=== PATIENT | male | born 1945 | race African-American/Black ===

== ENCOUNTER 2023-12-11 13:36 | Inpatient (IN) | payer MEDICARE ==
[~2023-12-11] VITALS: Ht 177.8 cm; Wt 99.6 kg
[2023-12-11] MEDS ORDERED: ATOR20TA PO (13:54)
[2023-12-11] MEDS ORDERED: LOSA-381 PO (13:54)
[2023-12-11] MEDS ORDERED: LANS-78 PO (13:54)
[2023-12-11] MEDS ORDERED: METO25XL PO (13:54)
[2023-12-11] MEDS ORDERED: FURO20 PO (13:54)
[2023-12-11] MEDS ORDERED: DAPA10TA7 PO (13:54)
[2023-12-11] MEDS ORDERED: OXYC5 PO (13:54)
[2023-12-11] MEDS ORDERED: METF-81 PO (13:54)
[2023-12-11] MEDS ORDERED: APIX5TAB PO (13:54)
[2023-12-11] MEDS: SODIUM CHLORIDE 0.9% 1,000 ML IV ONE (14:05)
[2023-12-11 14:12] LABS: EOSINOPHILS % (AUTO) 1.1 % (1.0-6.0); HEMATOCRIT 44.4 % (41-53); HEMOGLOBIN 14.7 g/dL (13.5-17.5); LYMPHOCYTES # (AUTO) 1.6 K/uL (1.0-4.8); LYMPHOCYTES % (AUTO) 41.3 % (22.0-44.0); MEAN CORPUSCULAR HEMOGLOBIN 29.5 pg (26.0-34.0); MEAN CORPUSCULAR VOLUME 89 fL (80-100); MONOCYTES # (AUTO) 0.4 K/uL (0.1-1.0); MONOCYTES % (AUTO) 11.1 % (2.0-9.0); NEUTROPHILS # (AUTO) 1.7 K/uL (1.8-7.7); NEUTROPHILS % (AUTO) 45.5 % (40.0-70.0); PLATELET COUNT (AUTO) 100 K/uL (150-450); RED BLOOD CELL COUNT(AUTO) 4.98 MIL/uL (4.50-5.90); RED CELL DISTRIBUTION WIDTH 17.3 % (11.5-14.5); WHITE BLOOD COUNT (AUTO) 3.8 K/uL (4.5-11.0)
[2023-12-11 14:22] LABS: ANION GAP 7 mmol/L (8-16); CALCIUM, TOTAL 9.7 mg/dL (8.8-10.5); CARBON DIOXIDE 29 mmol/L (22-29); CHLORIDE 101 mmol/L (98-107); CREATININE 1.75 mg/dL (0.60-1.30); GLOMERULAR FILTR. RATE CALC 38 mL/min (>60); GLUCOSE,RANDOM 159 mg/dL (70-110); POTASSIUM 4.4 mmol/L (3.5-5.1); SODIUM SERUM 137 mmol/L (136-145); UREA NITROGEN, BLOOD 31 mg/dL (7-18)
[2023-12-11 14:26] LABS: INR 1.1 (0.9-1.1); PROTHROMBIN TIME 11.4 SEC (9.4-11.6)
[2023-12-11 14:28] LABS: ALANINE AMINOTRANSFERASE 60 U/L (12-78); ALBUMIN 3.7 g/dL (3.4-5.0); ALKALINE PHOSPHATASE 130 U/L (46-116); ASPARTATE AMINOTRANSFERASE 30 U/L (15-37); BILIRUBIN,TOTAL 0.7 mg/dL (0.1-1.0); CREATINE KINASE, TOTAL ONLY 40 U/L (39-308); TOTAL PROTEIN, SERUM 7.9 g/dL (6.4-8.2)
[2023-12-11 14:29] LABS: B-TYPE NATRIURETIC PEPTIDE 271 pg/mL (0-100)
[2023-12-11 14:30] LABS: LACTIC ACID 1.6 mmol/L (0.4-2.0)
[2023-12-11 14:58] LABS: TROPONIN I-HIGH SENSITIVITY 791 ng/L (<76)
[2023-12-11 15:33] LABS: COVID AG,FIA SOURCE NASAL SWAB
[2023-12-11] MEDS ORDERED: HEPARIN SODIUM,PORCINE 5,000 UNITS/ML VIAL IVP PRN ×2 (15:45)
[2023-12-11] MEDS ORDERED: HEPARIN SODIUM,PORCINE 5,000 UNITS/ML VIAL IVP ONE (15:45)
[2023-12-11] MEDS: HEPARIN SODIUM,PORCINE 5,000 UNITS/ML VIAL IVP ONE (16:00)
[2023-12-11 16:02] LABS: SARS-COV2 (COVID) ANTIGEN,FIA Negative (Negative)
[2023-12-11] MEDS: HEPARIN SODIUM 25000 UNITS/D5W 250 ML IV PRN (16:02)
[2023-12-11 16:19] LABS: APPEARANCE,URINE CLEAR (CLEAR); BILIRUBIN,URINE NEGATIVE (NEGATIVE); COLOR,URINE COLORLESS (YELLOW); GLUCOSE, URINE (UA) >=1000 mg/dL (NEGATIVE); KETONES,URINE NEGATIVE (NEGATIVE); LEUKOCYTE ESTERASE ,URINE NEGATIVE (NEGATIVE); NITRATE,URINE NEGATIVE (NEGATIVE); OCCULT BLOOD,URINE NEGATIVE (NEGATIVE); PROTEIN,URINE NEGATIVE (NEGATIVE); SPECIFIC GRAVITIY, URINE 1.006 (1.003-1.030); UROBILINOGEN,URINE <=1.0 mg/dL (<=1.0)
[2023-12-11 16:31] LABS: BACTERIA,URINE None Seen /HPF (None Seen); RBC,URINE None Seen /HPF (0-2); WBC,URINE 0-2 /HPF (0-5)
[2023-12-11 17:41] LABS: TROPONIN I-HIGH SENSITIVITY 820 ng/L (<76)
[2023-12-11] MEDS ORDERED: DEXTROSE 50%-WATER 25 GM/50 ML SYRINGE IVP PRN (17:45)
[2023-12-11] MEDS ORDERED: MAGNESIUM HYDROXIDE SUSPENSION 30 ML UDCUP PO PRN (17:45)
[2023-12-11] MEDS ORDERED: ONDANSETRON HCL 4 MG/2 ML VIAL IVP PRN (17:45)
[2023-12-11] MEDS ORDERED: ZOLPIDEM TARTRATE 5 MG TABLET PO PRN (17:45)
[2023-12-11] MEDS ORDERED: ACETAMINOPHEN 325 MG TABLET PO PRN (17:45)
[2023-12-11] MEDS ORDERED: BISACODYL 10 MG RECTAL RECTAL SUPPOSITORY PR PRN (17:45)
[2023-12-11] MEDS: DOCUSATE SODIUM 100 MG CAPSULE PO SCH (21:00)
[2023-12-11 21:01] LABS: GLUCOMETER DEV NAME(LOC) ERT.5; GLUCOSE,POINT OF CARE 100 MG/DL (70-110)
[2023-12-11 21:19] VITALS: BP 105/71; PULSE 62; RESP 18; TEMP 97.6
[2023-12-11] MEDS: ATORVASTATIN CALCIUM 20 MG TABLET PO SCH (22:50)
[2023-12-12 01:24] VITALS: BP 93/65; PULSE 62; RESP 18; TEMP 98.5
[2023-12-12 05:33] VITALS: BP 76/50; PULSE 105; RESP 20; TEMP 97.5
[2023-12-12 06:16] VITALS: BP 95/60; RESP 18
[2023-12-12 07:06] LABS: BASOPHILS % (AUTO) 0.5 % (0.0-2.0); EOSINOPHILS % (AUTO) 1.5 % (1.0-6.0); HEMATOCRIT 41.9 % (41-53); HEMOGLOBIN 13.9 g/dL (13.5-17.5); LYMPHOCYTES # (AUTO) 1.7 K/uL (1.0-4.8); LYMPHOCYTES % (AUTO) 49.1 % (22.0-44.0); MEAN CORPUSCULAR HEMOGLOBIN 29.4 pg (26.0-34.0); MEAN CORPUSCULAR HGB CONC 33.1 G/dL (31.0-37.0); MEAN CORPUSCULAR VOLUME 89 fL (80-100); MONOCYTES # (AUTO) 0.4 K/uL (0.1-1.0); MONOCYTES % (AUTO) 10.5 % (2.0-9.0); NEUTROPHILS # (AUTO) 1.3 K/uL (1.8-7.7); NEUTROPHILS % (AUTO) 38.4 % (40.0-70.0); PLATELET COUNT (AUTO) 96 K/uL (150-450); RED BLOOD CELL COUNT(AUTO) 4.72 MIL/uL (4.50-5.90); RED CELL DISTRIBUTION WIDTH 16.8 % (11.5-14.5); WHITE BLOOD COUNT (AUTO) 3.5 K/uL (4.5-11.0)
[2023-12-12 07:09] LABS: CALCIUM, TOTAL 9.1 mg/dL (8.8-10.5); CREATININE 1.57 mg/dL (0.60-1.30); POTASSIUM 3.9 mmol/L (3.5-5.1)
[2023-12-12 07:31] LABS: TROPONIN I-HIGH SENSITIVITY 617 ng/L (<76)
[2023-12-12 07:55] LABS: CHOL/HDL RATIO 1.5 (4.2-7.3); THYROID STIMULATING HORMONE 1.6 uIU/mL (0.36-3.74)
[2023-12-12 08:18] VITALS: BP 117/71; PULSE 74; RESP 20; TEMP 97.4; O2SAT 91
[2023-12-12] MEDS ORDERED: HEPARIN SODIUM,PORCINE 5,000 UNITS/ML VIAL IVP PRN (08:30)
[2023-12-12] MEDS: METOPROLOL TARTRATE 25 MG TABLET PO SCH (09:20)
[2023-12-12] MEDS: ASPIRIN 81 MG DR TABLET PO SCH (09:20)
[2023-12-12] MEDS: PANTOPRAZOLE SODIUM 40 MG DR TABLET PO SCH (09:20)
[2023-12-12] MEDS: HEPARIN SODIUM,PORCINE 5,000 UNITS/ML VIAL IVP ONE (09:21)
[2023-12-12] MEDS: INSULIN LISPRO 100 UNITS/ML SQ PRN (12:20)
[2023-12-12] MEDS: HEPARIN SODIUM,PORCINE 5,000 UNITS/ML VIAL IVP PRN (16:02)
[2023-12-12] MEDS: HEPARIN SODIUM 25000 UNITS/D5W 250 ML IV PRN (16:16)
[2023-12-12 19:39] VITALS: BP 103/63; PULSE 61; RESP 20; TEMP 98
[2023-12-13 00:51] VITALS: BP 92/59; PULSE 70; RESP 18; TEMP 97.9
[2023-12-13 05:39] VITALS: BP 111/58; PULSE 64; RESP 18; TEMP 97.6
[2023-12-13 06:54] LABS: BASOPHILS % (AUTO) 0.5 % (0.0-2.0); EOSINOPHILS % (AUTO) 1.7 % (1.0-6.0); HEMATOCRIT 40.9 % (41-53); HEMOGLOBIN 13.7 g/dL (13.5-17.5); LYMPHOCYTES # (AUTO) 1.8 K/uL (1.0-4.8); LYMPHOCYTES % (AUTO) 49.9 % (22.0-44.0); MEAN CORPUSCULAR HEMOGLOBIN 29.7 pg (26.0-34.0); MEAN CORPUSCULAR HGB CONC 33.6 G/dL (31.0-37.0); MEAN CORPUSCULAR VOLUME 89 fL (80-100); MONOCYTES # (AUTO) 0.6 K/uL (0.1-1.0); MONOCYTES % (AUTO) 15.4 % (2.0-9.0); NEUTROPHILS # (AUTO) 1.2 K/uL (1.8-7.7); NEUTROPHILS % (AUTO) 32.5 % (40.0-70.0); PLATELET COUNT (AUTO) 85 K/uL (150-450); RED BLOOD CELL COUNT(AUTO) 4.62 MIL/uL (4.50-5.90); RED CELL DISTRIBUTION WIDTH 16.6 % (11.5-14.5); WHITE BLOOD COUNT (AUTO) 3.7 K/uL (4.5-11.0)
[2023-12-13 07:00] LABS: CALCIUM, TOTAL 9.1 mg/dL (8.8-10.5); CREATININE 1.48 mg/dL (0.60-1.30)
[2023-12-13] MEDS: HEPARIN SODIUM,PORCINE 5,000 UNITS/ML VIAL IVP PRN (09:12)
[2023-12-13] MEDS ORDERED: HEPARIN SODIUM,PORCINE 5,000 UNITS/ML VIAL IVP PRN (09:15)
[2023-12-13 09:21] VITALS: BP 104/49; PULSE 68; RESP 18; TEMP 98
[2023-12-13] MEDS ORDERED: PENTETATE DTPA TC99M/MCL ISOTOPE 1 EA INJ INJ ONE (11:10)
[2023-12-13 11:30] VITALS: BP 104/65; PULSE 119; RESP 19; TEMP 98.1
[2023-12-13] MEDS ORDERED: MAA ALBUMIN AGGREGATED TC99M/UD<10MCL ISOTOPE 1 EA INJ INJ ONE (11:30)
[2023-12-13 17:21] VITALS: BP 109/77; PULSE 74; RESP 19; TEMP 97.7
[2023-12-13 20:27] VITALS: BP 99/66; PULSE 75; RESP 18; TEMP 97.9
[2023-12-13] MEDS: HEPARIN SODIUM 25000 UNITS/D5W 250 ML IV PRN (23:33)
[2023-12-14 00:16] VITALS: BP 97/50; PULSE 86; RESP 19; TEMP 97.6
[2023-12-14 04:02] VITALS: BP 126/60; PULSE 69; RESP 18; TEMP 97.5
[2023-12-14 07:01] LABS: BASOPHILS % (AUTO) 0.8 % (0.0-2.0); EOSINOPHILS % (AUTO) 1.7 % (1.0-6.0); HEMOGLOBIN 14.1 g/dL (13.5-17.5); LYMPHOCYTES # (AUTO) 1.6 K/uL (1.0-4.8); LYMPHOCYTES % (AUTO) 42.9 % (22.0-44.0); MEAN CORPUSCULAR HEMOGLOBIN 29.7 pg (26.0-34.0); MEAN CORPUSCULAR HGB CONC 33.5 G/dL (31.0-37.0); MEAN CORPUSCULAR VOLUME 89 fL (80-100); MONOCYTES # (AUTO) 0.5 K/uL (0.1-1.0); MONOCYTES % (AUTO) 12.9 % (2.0-9.0); NEUTROPHILS # (AUTO) 1.6 K/uL (1.8-7.7); NEUTROPHILS % (AUTO) 41.7 % (40.0-70.0); PLATELET COUNT (AUTO) 80 K/uL (150-450); RED BLOOD CELL COUNT(AUTO) 4.74 MIL/uL (4.50-5.90); RED CELL DISTRIBUTION WIDTH 16.9 % (11.5-14.5); WHITE BLOOD COUNT (AUTO) 3.8 K/uL (4.5-11.0)
[2023-12-14 07:08] LABS: CREATININE 1.67 mg/dL (0.60-1.30); POTASSIUM 4.3 mmol/L (3.5-5.1)
[2023-12-14 07:14] LABS: CALCIUM, TOTAL 9.1 mg/dL (8.8-10.5)
[2023-12-14 08:32] VITALS: BP 102/59; PULSE 70; RESP 18; TEMP 97.6
[2023-12-14] MEDS: APIXABAN 5 MG TABLET PO SCH (08:40)
[2023-12-14] MEDS: LOSARTAN POTASSIUM 25 MG TABLET PO SCH (09:00)
[2023-12-14] MEDS: METOPROLOL SUCCINATE 25 MG ER TABLET PO SCH (09:00)
[2023-12-14 11:07] VITALS: BP 98/64; PULSE 76; RESP 18; TEMP 98.1
[2023-12-14 16:16] VITALS: BP 120/77; PULSE 73; RESP 18; TEMP 97.4
[2023-12-14 17:56] LABS: GLUCOMETER DEV NAME(LOC) 5N.2C; GLUCOSE,POINT OF CARE 119 MG/DL (70-110)
[2023-12-14 20:00] VITALS: BP 93/55; PULSE 73; RESP 18; TEMP 98.2
[2023-12-15] VITALS: BP 99/61; PULSE 63; RESP 18; TEMP 97.6
[2023-12-15 00:12] LABS: GLUCOMETER DEV NAME(LOC) 5S.2C; GLUCOSE,POINT OF CARE 162 MG/DL (70-110)
[2023-12-15 00:12] LABS: GLUCOMETER DEV NAME(LOC) 5S.2C; GLUCOSE,POINT OF CARE 146 MG/DL (70-110)
[2023-12-15 00:12] LABS: GLUCOMETER DEV NAME(LOC) 5S.2C; GLUCOSE,POINT OF CARE 154 MG/DL (70-110)
[2023-12-15 00:12] LABS: GLUCOMETER DEV NAME(LOC) 5S.2C; GLUCOSE,POINT OF CARE 149 MG/DL (70-110)
[2023-12-15 00:13] LABS: GLUCOMETER DEV NAME(LOC) 5S.2C; GLUCOSE,POINT OF CARE 162 MG/DL (70-110)
[2023-12-15 04:00] VITALS: BP 91/62; PULSE 66; RESP 18; TEMP 97.5
[2023-12-15 07:09] VITALS: BP 112/72; PULSE 66; RESP 18; TEMP 97.6
[2023-12-15 07:14] LABS: CALCIUM, TOTAL 9.2 mg/dL (8.8-10.5); CREATININE 1.58 mg/dL (0.60-1.30); POTASSIUM 4.4 mmol/L (3.5-5.1)
[2023-12-15] MEDS: SPIRONOLACTONE 25 MG TABLET PO SCH (08:16)
[2023-12-15] MEDS ORDERED: METO25XL PO (09:54)
[2023-12-15] MEDS ORDERED: SPIR-37 PO (09:54)
[2023-12-15] MEDS ORDERED: LOSA-417 PO (09:54)
[2023-12-15] MEDS ORDERED: ASPI-1444 PO (09:54)
[2023-12-15 11:30] VITALS: BP 104/70; PULSE 68; RESP 18; TEMP 98.2
[2023-12-16 11:51] LABS: GLUCOMETER DEV NAME(LOC) 5N.1C; GLUCOSE,POINT OF CARE 123 MG/DL (70-110)
[2023-12-16 11:56] LABS: GLUCOMETER DEV NAME(LOC) 5N.1C; GLUCOSE,POINT OF CARE 185 MG/DL (70-110)
[2023-12-16 11:56] LABS: GLUCOMETER DEV NAME(LOC) 5N.1C; GLUCOSE,POINT OF CARE 225 MG/DL (70-110)
[2023-12-16 11:56] LABS: GLUCOMETER DEV NAME(LOC) 5N.1C; GLUCOSE,POINT OF CARE 174 MG/DL (70-110)
[2023-12-16 11:57] LABS: GLUCOMETER DEV NAME(LOC) 5N.1C; GLUCOSE,POINT OF CARE 110 MG/DL (70-110)
[2023-12-16 11:57] LABS: GLUCOMETER DEV NAME(LOC) 5N.1C; GLUCOSE,POINT OF CARE 167 MG/DL (70-110)
[2023-12-16 11:57] LABS: GLUCOMETER DEV NAME(LOC) 5N.1C; GLUCOSE,POINT OF CARE 160 MG/DL (70-110)
== END 2023-12-15 12:10 | disposition home or self-care (01) | DRG 73 ==
LOC: EMS 13:37 → AHU 14:31 → 5S 18:47
PROVIDERS: ADMIT Internal Medicine; ATTEND Internal Medicine
DX: G90.8 Other disorders of autonomic nervous system (principal); I50.23 Acute on chronic systolic (congestive) heart failure; I13.0 Hypertensive heart and chronic kidney disease with heart failure and stage 1 through stage 4 chronic kidney disease, or unspecified chronic kidney disease; N17.9 Acute kidney failure, unspecified; I82.533 Chronic embolism and thrombosis of popliteal vein, bilateral; I82.512 Chronic embolism and thrombosis of left femoral vein; I82.592 Chronic embolism and thrombosis of other specified deep vein of left lower extremity; R07.89 Other chest pain; Z20.822 Contact with and (suspected) exposure to COVID-19; I49.5 Sick sinus syndrome; R55 Syncope and collapse; N18.30 Chronic kidney disease, stage 3 unspecified; E11.22 Type 2 diabetes mellitus with diabetic chronic kidney disease; E78.00 Pure hypercholesterolemia, unspecified; Z85.038 Personal history of other malignant neoplasm of large intestine; Z85.05 Personal history of malignant neoplasm of liver; Z79.899 Other long term (current) drug therapy; Z88.8 Allergy status to other drugs, medicaments and biological substances; Z88.5 Allergy status to narcotic agent
CPT/HCPCS: 71045; 78582; 80048; 80053; 80061; 81001; 81003; 82550; 82962; 83036; 83605; 83880; 84145; 84443; 84484; 85025; 85610; 85730; 93005; 93306; 93970; 97163; 97167; 97535; 99285; A9539; A9540; J1644; J7030; 36415-L1; 36415-TC